=== PATIENT | male | born 1945 | race Caucasian/White ===

== ENCOUNTER 2018-01-17 09:12 | Emergency (ER) | payer MEDICARE, BC ==
--- NOTE | 2018-01-17 09:22 | EDM.PDOC ---
ED HPI GENERAL MEDICAL PROBLEM - General Chief Complaint: Headache Stated Complaint: [id number] HEADACHE Time Seen by Provider: 01/17/18 09:21 Source of Information: Reports: Patient, RN, RN Notes Reviewed History Limitations: Reports: No Limitations - History of Present Illness INITIAL COMMENTS - FREE TEXT/NARRATIVE: Pt presents to the ER with c/o headache. The patient states yesterday he began having "twinges" in the left occiputal area. He states he took ibuprofen last evening and this subsided and he was able to sleep all night without problem. Patient states the "twinges" began again this morning, but he is not having them at this time. Patient denies any pain at this time. Pt denies fever, chills , N/V/D, chest pains, SOB. Patient denies hx of hypertension, stroke, or headaches. Onset: Gradual Onset Date: 01/16/18 Left Lower Headache Pain Score (Numeric/FACES): 3 - Related Data Allergies Allergy/AdvReac Type Severity Reaction Status Date / Time No Known Allergies Allergy Verified 01/17/18 09:20 Home Meds: Home Meds Aspirin [Lo-Dose Aspirin EC] 81 mg PO DAILY 01/17/18 [History] atorvaSTATin [Lipitor] 40 mg PO BEDTIME 01/17/18 [History] Past Medical History - Past Health History Medical/Surgical History: Denies Medical/Surgical History ED ROS GENERAL - Review of Systems Review Of Systems: ROS reveals no pertinent complaints other than HPI. - Physical Exam Exam: See Below Exam Limited By: No Limitations General Appearance: Alert, WD/WN, No Apparent Distress Eye Exam: Bilateral Eye: EOMI, Normal Inspection Ears: Normal External Exam, Normal Canal, Hearing Grossly Normal, Normal TMs Nose: Normal Inspection, Normal Mucosa, No Blood Throat/Mouth: Normal Inspection, Normal Lips, Normal Teeth, Normal Gums, Normal Oropharynx, Normal Voice, No Airway Compromise Head Exam: Atraumatic, Normocephalic Neck: Normal Inspection, Supple, Non-Tender, Full Range of Motion Respiratory/Chest: No Respiratory Distress, Lungs Clear, Normal Breath Sounds, No Accessory Muscle Use, Chest Non-Tender Cardiovascular: Normal Peripheral Pulses, Regular Rate, Rhythm, No Edema, No Gallop, No JVD, No Murmur, No Rub GI/Abdominal: Normal Bowel Sounds, Soft, Non-Tender, No Organomegaly, No Distention, No Abnormal Bruit, No Mass (Male) Exam: Deferred Rectal (Males) Exam: Deferred Neuro Exam (Abbreviated): Alert, Oriented, CN II-XII Intact, Normal Cognition, Normal Gait, Normal Reflexes, No Motor/Sensory Deficits Back Exam: Normal Inspection, Full Range of Motion, NT Extremities: Normal Inspection, Normal Range of Motion, Non-Tender, No Pedal Edema, Normal Capillary Refill Psychiatric: Normal Mood, Anxious Skin Exam: Warm, Dry, Intact, Normal Color, No Rash Course - Vital Signs Last Recorded V/S: Last Vital Signs Temp 98.1 F 01/17/18 09:21 Pulse 92 01/17/18 09:21 Resp 16 01/17/18 09:21 BP 160/96 H 01/17/18 09:21 Pulse Ox 98 01/17/18 09:21 Departure - Departure Time of Disposition: 09:42 Disposition: Home, Self-Care 01 Condition: Good Clinical Impression: Physically well but worried - Discharge Information Instructions: General Headache Without Cause, [id number] Forms: ED Department Discharge Additional Instructions: May use ibuprofen 400-600mg every 8 hours as needed for pain May use Tylenol as directed every 4 hours as needed for pain Drink plenty of water Follow up with your primary care facility
== END 2018-01-17 09:45 | disposition home or self-care (01) ==
LOC: DL.ED 09:12
DX: Z71.1 Person with feared health complaint in whom no diagnosis is made (principal); Z79.82 Long term (current) use of aspirin
CPT/HCPCS: 99282; 99283